=== PATIENT | female | born 1985 | race Hispanic/Latino ===

== ENCOUNTER 2023-11-15 10:04 | Inpatient (IN) | payer MEDICAID, SELFPAY ==
[~2023-11-15 10:04] MED LIST: Iopamidol-370 76% 500 ML MDV (1 ML CHARGE) ONE
[2023-11-15] MEDS ORDERED: Pantoprazole 40 MG VIAL ONE (10:39)
[2023-11-15] MEDS ORDERED: Ondansetron PF 4 MG/2 ML Vial ONE (10:39)
[2023-11-15] MEDS ORDERED: Morphine 4 MG/ML VIAL ONE (10:39)
[2023-11-15 11:31] LABS: Bacteria/HPF None Seen HPF (None Seen); Bilirubin Negative (Negative); Blood, Urine Negative (Negative); CAUTI Indications for Culture Pelvic or flank pain; Clarity Clear (Clear); Glucose, Urine (Dipstick) Greater than 1000 mg/dL (Negative); Ketone, Urine Greater than 150 mg/dL (Negative); Leukocyte Negative Leu/uL (Negative); Nitrite Negative (Negative); Protein, Urine (Dipstick) 10 mg/dL (Neg-Trace); RBC/HPF 0-3 HPF (0-3); Specific Gravity, Urine 1.045 (1.002-1.036); Urobilinogen Normal mg/dL (Less than 2); WBC/HPF 0-3 HPF (0-3); pH, Urine 5.5 (5.0-9.0)
[2023-11-15 11:33] LABS: Urine Culture Reflex No No
[2023-11-15 11:37] LABS: BHCG - Serum Negative (NEGATIVE); Pregs Control Background? CLEAR/WHITE (CLR/WHITE); Pregs Control Bar Appear? YES (CONTROL BAR)
[2023-11-15 11:42] LABS: ALT (SGPT) 18 U/L (8-55); AST (SGOT) 23 U/L (5-34); Albumin 4.1 g/dL (3.5-5.0); Alkaline Phosphatase 92 U/L (40-110); Anion Gap 25 mmol/L (10-20); BUN (Urea Nitrogen) 8 mg/dL (7.0-18.7); Bilirubin, Total 0.9 mg/dL (0.2-1.2); Calc. Creatinine Clearance 0 mL/min (70-130); Calcium 9.3 mg/dL (7.8-10.44); Carbon Dioxide 12 mmol/L (22-29); Chloride 97 mmol/L (98-107); Estimated GFR 90; Globulin 5.5 g/dL (2.4-3.5); Glucose 257 mg/dL (70-105); Lipase 183 U/L (8-78); Magnesium 1.8 mg/dL (1.6-2.6); Potassium 4.2 mmol/L (3.5-5.1); Protein, Total 9.6 g/dL (6.0-8.3); Sodium 130 mmol/L (136-145)
[2023-11-15 11:54] LABS: Troponin I Less than 0.010 ng/mL (< 0.028)
[2023-11-15 12:03] LABS: #Basophils 0.03 10x3/uL (0.0-0.2); #Eosinphils Less than 0.03 10x3/uL (0.0-0.7); %Basophils 0.2 % (0.0-1.0); %Eosinophils 0.1 % (0.0-10.0); %Lymphocytes 8.8 % (21.0-51.0); %Monocytes 5.1 % (0.0-10.0); %Neutrophils 85.4 % (42.0-75.0); Hematocrit 42.1 % (36.0-47.0); Hemoglobin 13.2 g/dL (12.0-16.0); Mean Corpuscular HGB CONC 31.4 g/dL (32.0-36.0); Mean Corpuscular Hemoglobin 24.3 pg (27.0-31.0); Mean Platelet Volume 10.7 fL (7.4-10.4); Platelet Count 420 10x3/uL (130-400); Red Blood Cell (RBC) Count 5.47 mill/uL (4.20-5.40)
[2023-11-15 14:23] LABS: Actual Bicarbonate (HCO3v) 20.7 mEq/L (22-28); Analyzer IN Cardio ER; Base Excess -4.9 mEq/L (-2.0 to +3.0); Calcium, Ionized (venous) 1.09 mmol/L (1.16-1.32); Chloride (VBG) 99 mmol/L (98-106); Hematocrit-VBG 45 % (36.0-47.0); Hemoglobin (Hb) 15.2 g/dL (11.7-15.5); Potassium (VBG) 4.09 mmol/L (3.70-5.30); Sodium 136 mmol/L (133-146); pH (venous) 7.328 (7.32-7.43)
[2023-11-15] MEDS ORDERED: Senokot S 8.6-50 MG TAB PO PRN (15:33)
[2023-11-15] MEDS ORDERED: Calcium Carbonate 500 MG ChewTAB PO PRN (15:33)
[2023-11-15] MEDS ORDERED: Insulin Regular, Human 100 UNIT/ML 10 ML VIAL ONE (16:23)
[2023-11-15] MEDS: Sodium Chloride 0.9% 1,000 ML IV SCH ×2 (17:15→18:39)
[2023-11-15 17:39] VITALS: BMI 28.8
[2023-11-15] MEDS: Acetaminophen 325 MG TAB PO SCH (18:09)
[2023-11-15] MEDS: Morphine 2 MG/ML VIAL SLOW IVP PRN (18:16)
[2023-11-15] MEDS ORDERED: Dextrose 5 %-0.45 % NaCl 1,000 ML IV PRN (18:17)
[2023-11-15] MEDS ORDERED: Electrolyte Replacement Protocol 1 EACH IVPB SCH (18:17)
[2023-11-15] MEDS ORDERED: Sodium Chloride 0.9% 1,000 ML IV PRN ×3 (18:17)
[2023-11-15] MEDS ORDERED: NS 0.9% w/ 20 MEQ KCL 1,000 ML IV PRN ×2 (18:17)
[2023-11-15] MEDS ORDERED: Dextrose 50% Abboject 50 ML SYRINGE SLOW IVP PRN (18:17)
[2023-11-15] MEDS: Sucralfate 1 GM TAB PO SCH (18:37)
[2023-11-15] MEDS: Lidocaine 2% Viscous 10 mL, Alum & Magn 30 mL SSW SCH (18:37)
[2023-11-15] MEDS ORDERED: INSULIN REGULAR IN 0.9 % NACL 100 UNITS in Premix 1 BAG IVPB SCH (19:00)
[2023-11-15] MEDS: Famotidine/PF 20 mg/2ml Vial SLOW IVP SCH (20:19)
[2023-11-15] MEDS: Ondansetron PF 4 MG/2 ML Vial IVP PRN (20:19)
[2023-11-15] MEDS: Sodium Chloride 0.9% 1,000 ML IV PRN (20:19)
[2023-11-15] MEDS: Magnesium 2 GM/50 ML(in water) 2 GM in Premix 1 BAG IVPB SCH (20:19)
[2023-11-15 22:11] LABS: Anion Gap 16 mmol/L (10-20); BUN (Urea Nitrogen) 6 mg/dL (7.0-18.7); Calc. Creatinine Clearance 132 mL/min (70-130); Calcium 7.4 mg/dL (7.8-10.44); Carbon Dioxide 15 mmol/L (22-29); Chloride 107 mmol/L (98-107); Estimated GFR 115; Glucose 173 mg/dL (70-105); Potassium 4.1 mmol/L (3.5-5.1); Sodium 134 mmol/L (136-145)
[2023-11-15] MEDS: D5 1/2 NS w/20 mEq KCL 1,000 ML IV PRN (22:27)
[2023-11-16 03:52] LABS: #Basophils 0.03 10x3/uL (0.0-0.2); #Eosinphils Less than 0.03 10x3/uL (0.0-0.7); %Basophils 0.2 % (0.0-1.0); %Eosinophils 0.1 % (0.0-10.0); %Lymphocytes 9.5 % (21.0-51.0); %Monocytes 4.3 % (0.0-10.0); %Neutrophils 85.6 % (42.0-75.0); Hematocrit 35.7 % (36.0-47.0); Mean Corpuscular HGB CONC 33.6 g/dL (32.0-36.0); Mean Corpuscular Hemoglobin 27.1 pg (27.0-31.0); Mean Corpuscular Volume 80.8 fL (78.0-98.0); Mean Platelet Volume 9.1 fL (7.4-10.4); Platelet Count 255 10x3/uL (130-400); Red Blood Cell (RBC) Count 4.42 mill/uL (4.20-5.40)
[2023-11-16 04:03] LABS: Hemoglobin A1c 11.9 % (4.0-6.0)
[2023-11-16 04:06] LABS: Phosphorus 1.7 mg/dL (2.3-4.7)
[2023-11-16 04:08] LABS: ALT (SGPT) 17 U/L (8-55); AST (SGOT) 16 U/L (5-34); Albumin 2.7 g/dL (3.5-5.0); Alkaline Phosphatase 64 U/L (40-110); Anion Gap 10 mmol/L (10-20); BUN (Urea Nitrogen) 4 mg/dL (7.0-18.7); Bilirubin, Total 0.6 mg/dL (0.2-1.2); Calc. Creatinine Clearance 134 mL/min (70-130); Calcium 7.3 mg/dL (7.8-10.44); Carbon Dioxide 17 mmol/L (22-29); Cardiac Risk 7.3 (Less than 4.5); Chloride 109 mmol/L (98-107); Cholesterol 225 mg/dl (< 200 Desired); Estimated GFR 115; Globulin 3.3 g/dL (2.4-3.5); Glucose 243 mg/dL (70-105); HDL Cholesterol 31 mg/dL (>60 Neg Risk); Lipase 148 U/L (8-78); Potassium 3.8 mmol/L (3.5-5.1); Sodium 132 mmol/L (136-145); Triglycerides 414 mg/dL (Less than 150)
[2023-11-16] MEDS ORDERED: Dextrose 5% in Water 1,000 ML IV PRN (09:00)
[2023-11-16] MEDS ORDERED: HumaLOG 300 UNITS/3 ML VIAL SC PRN (09:00)
[2023-11-16] MEDS ORDERED: Glucagon 1 MG/ML KIT IM PRN (09:00)
[2023-11-16] MEDS ORDERED: Dextrose 50% Abboject 50 ML SYRINGE SLOW IVP PRN (09:00)
[2023-11-16] MEDS: Potassium Phosphate 15 MMOL in Sodium Chloride 0.9% 100 ML IVPB SCH (09:34)
[2023-11-16] MEDS: Enoxaparin 40 MG (0.4 mL) SYRINGE SC SCH (09:34)
[2023-11-16] MEDS: glipiZIDE 5 MG TAB PO SCH (09:34)
[2023-11-16] MEDS: Magnesium 2 GM/50 ML(in water) 2 GM in Premix 1 BAG IVPB SCH (10:34)
[2023-11-16] MEDS: Insulin Lispro 100 UNIT/ML 10 ML VIAL SC PRN (17:00)
[2023-11-16] MEDS: Atorvastatin Calcium 40 MG TAB PO SCH (21:00)
[2023-11-17 04:49] LABS: #Basophils 0.03 10x3/uL (0.0-0.2); %Basophils 0.2 % (0.0-1.0); %Eosinophils 0.4 % (0.0-10.0); %Lymphocytes 9.2 % (21.0-51.0); %Monocytes 6.4 % (0.0-10.0); %Neutrophils 83.4 % (42.0-75.0); Hematocrit 35.7 % (36.0-47.0); Hemoglobin 12.1 g/dL (12.0-16.0); Mean Corpuscular HGB CONC 33.9 g/dL (32.0-36.0); Mean Corpuscular Hemoglobin 26.7 pg (27.0-31.0); Mean Corpuscular Volume 78.8 fL (78.0-98.0); Mean Platelet Volume 9.1 fL (7.4-10.4); Platelet Count 262 10x3/uL (130-400); RBC Distribution Width 14.4 % (11.5-14.5); Red Blood Cell (RBC) Count 4.53 mill/uL (4.20-5.40)
[2023-11-17 05:00] LABS: ALT (SGPT) 10 U/L (8-55); AST (SGOT) 10 U/L (5-34); Albumin 2.6 g/dL (3.5-5.0); Alkaline Phosphatase 64 U/L (40-110); Anion Gap 10 mmol/L (10-20); BUN (Urea Nitrogen) 5 mg/dL (7.0-18.7); Bilirubin, Total 0.9 mg/dL (0.2-1.2); Calc. Creatinine Clearance 132 mL/min (70-130); Calcium 8.1 mg/dL (7.8-10.44); Carbon Dioxide 22 mmol/L (22-29); Chloride 104 mmol/L (98-107); Estimated GFR 115; Globulin 3.5 g/dL (2.4-3.5); Glucose 165 mg/dL (70-105); Lipase 58 U/L (8-78); Potassium 3.5 mmol/L (3.5-5.1); Protein, Total 6.1 g/dL (6.0-8.3); Sodium 132 mmol/L (136-145)
[2023-11-17] MEDS: Potassium Chloride 20 MEQ TAB PO SCH (09:42)
[2023-11-17] MEDS: glipiZIDE 10 MG TAB PO SCH (16:07)
[2023-11-17] MEDS: Morphine 2 MG/ML VIAL SLOW IVP PRN (16:08)
[2023-11-18 08:25] VITALS: TEMP 98.5
[2023-11-18 17:27] VITALS: BP 131/84
== END 2023-11-18 17:30 | disposition home or self-care (01) | DRG 637 ==
LOC: SUATTDRO 10:04 → ERS 10:04 → IMCU/EMU 15:38 → MSONC 11-16 13:02
PROVIDERS: ADMIT Internal Medicine; ATTEND Internal Medicine
DX: E11.10 Type 2 diabetes mellitus with ketoacidosis without coma (principal); K85.90 Acute pancreatitis without necrosis or infection, unspecified; E78.5 Hyperlipidemia, unspecified; E11.65 Type 2 diabetes mellitus with hyperglycemia; D72.829 Elevated white blood cell count, unspecified; Z91.148 Patient's other noncompliance with medication regimen for other reason
CPT/HCPCS: 36415; 36416; 74177; 76705; 80053; 80061; 81001; 82010; 82805; 83036; 83690; 83735; 84100; 84484; 84703; 85025; 86140; 93005; C9113; J1650; J1815; J2270; J2272; J2405; J3475; J3480; J3490; J7050; Q9967; S0028